=== PATIENT | female | born 1980 | race Caucasian/White ===

== ENCOUNTER 2018-09-24 08:23 | Emergency (ER) | payer MEDICAID ==
[~2018-09-24] VITALS: Ht 162.6 cm; Wt 60.0 kg
[~2018-09-24 08:23] MED LIST: PRENATAL
[2018-09-24] MEDS ORDERED: HYDROCODONE/ACETAMINOPHEN 5/325MG TABLET PO ONE (09:00)
[2018-09-24 09:43] VITALS: BP 112/73
== END 2018-09-24 09:42 | disposition home or self-care (01) ==
LOC: ER 08:23
DX: S10.93XA Contusion of unspecified part of neck, initial encounter (principal); S20.219A Contusion of unspecified front wall of thorax, initial encounter; S30.0XXA Contusion of lower back and pelvis, initial encounter; S60.211A Contusion of right wrist, initial encounter; R03.0 Elevated blood-pressure reading, without diagnosis of hypertension; V43.52XA Car driver injured in collision with other type car in traffic accident, initial encounter; Y93.89 Activity, other specified; Y92.410 Unspecified street and highway as the place of occurrence of the external cause
CPT/HCPCS: 71045; 73110; 81025; 99283

== ENCOUNTER 2022-09-30 20:22 | Emergency (ER) | payer MEDICAID ==
[~2022-09-30] VITALS: Ht 165.1 cm; Wt 62.0 kg
[2022-09-30 20:30] VITALS: BP 136/70
== END 2022-10-01 00:23 | disposition left against medical advice (07) ==
LOC: ER 20:22
DX: R51.9 Headache, unspecified (principal)
CPT/HCPCS: 99284